=== PATIENT | female | born 1940 | race Caucasian/White ===

== ENCOUNTER 2021-07-11 12:39 | Outpatient (CLI) | payer MEDICARE, BC | END 2021-07-11 12:40 | disposition home or self-care (01) | LOC: BICMAMMO 12:39 | PROVIDERS: ATTEND Internal Medicine | DX: Z12.31 Encounter for screening mammogram for malignant neoplasm of breast (principal) | CPT/HCPCS: 77063; 77067 ==

== ENCOUNTER 2022-06-12 08:04 | Outpatient (CLI) | payer MEDICARE, BC ==
[2022-06-12 08:58] LABS: #Basophils 0.1 10x3/uL (0.0-0.2); #Eosinphils 0.3 10x3/uL (0.0-0.5); #Monocytes 0.6 10x3/uL (0.0-1.1); %Basophils 0.8 % (0.0-2.0); %Eosinophils 4.5 % (0.0-6.0); %Lymphocytes 31.7 % (18.0-47.0); %Monocytes 8.2 % (0.0-10.0); %Neutrophils 54.5 % (40.0-75.0); Hemoglobin 11.1 g/dL (12.0-15.5); Mean Corpuscular HGB CONC 33.5 g/dL (32.0-36.0); Mean Corpuscular Hemoglobin 31.5 pg (27.0-33.0); Mean Platelet Volume 11.3 fl (7.4-10.4); Platelet Count 254 10x3/uL (150-450); RBC Distribution Width 13.3 % (11.5-14.5); Red Blood Cell (RBC) Count 3.52 10x6/uL (3.90-5.03); White Blood Cell (WBC) Count 7.3 10x3/uL (3.5-10.5)
[2022-06-12 09:01] LABS: Prothrombin Time 10.5 sec (9.5-12.1)
[2022-06-12 09:04] LABS: Anion Gap 14 mmol/L (10-20); BUN (Urea Nitrogen) 42 mg/dL (9.8-20.1); Calc. Creatinine Clearance 0 mL/min (70-130); Calcium 9.9 mg/dL (7.8-10.44); Carbon Dioxide 26 mmol/L (23-31); Chloride 101 mmol/L (98-107); Estimated GFR 52; Glucose 102 mg/dL (83-110); Potassium 3.7 mmol/L (3.5-5.1); Sodium 137 mmol/L (136-145)
== END 2022-06-12 08:05 | disposition home or self-care (01) ==
LOC: LABBT 08:04
PROVIDERS: ATTEND Orthopaedic Surgery
DX: Z01.818 Encounter for other preprocedural examination (principal); M16.11 Unilateral primary osteoarthritis, right hip
CPT/HCPCS: 80048; 85025; 85610; 87081; 93005; 93010

== ENCOUNTER 2022-06-13 05:52 | Inpatient (IN) | payer MEDICARE, BC ==
[2022-06-13] MEDS ORDERED: Sodium Chloride 0.9% 100 ML ONE ×2 (06:28→09:19)
[2022-06-13] MEDS ORDERED: Vancomycin 1 GM/200 ML (FROZEN) BAG ONE (06:28)
[2022-06-13] MEDS ORDERED: Tranexamic Acid 1,000 MG/10 ML VIAL ONE (06:28)
[2022-06-13 07:37] LABS: SARS-CoV-2 NAA Rapid Test Not Detected (NotDetected)
[2022-06-13] MEDS ORDERED: Fentanyl 100 MCG/2 ML VIAL ONE (07:44)
[2022-06-13] MEDS ORDERED: Midazolam HCl 2 mg/2 ml Vial ONE (07:44)
[2022-06-13] MEDS ORDERED: Ropivacaine 0.5% HCl/PF (150 MG/30 ML VIAL) ONE (07:44)
[2022-06-13] MEDS ORDERED: PHENYLEPHRINE-NS 100 MCG/ML 10 ML SYRINGE ONE (08:59)
[2022-06-13] MEDS ORDERED: PROPOFOL 200 MG/20 ML VIAL ONE (08:59)
[2022-06-13] MEDS ORDERED: Ondansetron PF 4 MG/2 ML Vial ONE ×2 (08:59→12:13)
[2022-06-13] MEDS ORDERED: ePHEDrine 50 MG/ML VIAL ONE (08:59)
[2022-06-13] MEDS ORDERED: Bupivacaine PF 0.5% 30 ML VIAL ONE (09:06)
[2022-06-13] MEDS ORDERED: Propofol 500 MG/50 ML VIAL ONE (09:07)
[2022-06-13] MEDS ORDERED: diphenhydrAMINE 25 MG CAP PO PRN (09:13)
[2022-06-13] MEDS ORDERED: Zolpidem Tartrate 5 MG TAB PO PRN (09:13)
[2022-06-13] MEDS ORDERED: traMADol HCl 50 MG TAB PO PRN ×2 (09:13)
[2022-06-13] MEDS ORDERED: Promethazine HCl 25 MG/ML VIAL IM PRN (09:13)
[2022-06-13] MEDS ORDERED: Fentanyl 100 MCG/2 ML VIAL SLOW IVP PRN (09:13)
[2022-06-13] MEDS ORDERED: Acetaminophen 325 MG TAB PO PRN (09:13)
[2022-06-13] MEDS ORDERED: Loratadine 10 MG TAB PO PRN (09:14)
[2022-06-13] MEDS ORDERED: ePHEDrine Sulfate 50 MG/10 ML VIAL ONE (09:18)
[2022-06-13] MEDS ORDERED: CEFAZOLIN 2 GM VIAL ONE (09:19)
[2022-06-13] MEDS: Sodium Chloride 0.9% 1,000 ML IV SCH ×2 (09:45→20:57)
[2022-06-13] MEDS ORDERED: Ondansetron HCl/PF 4 MG/2 ML Vial IVP PRN (10:28)
[2022-06-13] MEDS ORDERED: fentaNYL PF 100 MCG/2 ML SYRINGE ONE ×2 (11:54→13:23)
[2022-06-13] MEDS ORDERED: Promethazine HCl 25 MG/ML VIAL ONE (12:21)
[2022-06-13] MEDS ORDERED: Labetalol HCl 100 MG/20 ML VIAL ONE (12:48)
[2022-06-13] MEDS ORDERED: Haloperidol Lactate 5 MG/ML VIAL ONE (13:08)
[2022-06-13] MEDS ORDERED: Promethazine HCl 25 MG/ML VIAL IM/IV PRN (13:15)
[2022-06-13] MEDS ORDERED: Ketorolac Tromethamine 30 MG/ML VIAL ONE (14:19)
[2022-06-13] MEDS ORDERED: Acetaminophen 325 MG TAB ONE (14:20)
[2022-06-13 17:01] VITALS: BMI 26.6
[2022-06-13] MEDS: CEFAZOLIN 2 GM in Sodium Chloride 0.9% 100 ML IVPB SCH (17:50)
[2022-06-13] MEDS: Senokot S 8.6-50 MG TAB PO SCH (21:00)
[2022-06-13] MEDS: Aspirin 81 mg Enteric Coated Tablet PO SCH (21:00)
[2022-06-13] MEDS ORDERED: Ferrous Gluconate 324 MG TAB PO SCH (21:00)
[2022-06-13] MEDS: Atorvastatin Calcium 10 MG TAB PO SCH (21:00)
[2022-06-14] MEDS: CEFAZOLIN 2 GM in Sodium Chloride 0.9% 100 ML IVPB SCH (00:49)
[2022-06-14 06:33] LABS: Hemoglobin 9.3 g/dL (12.0-16.0); Mean Corpuscular HGB CONC 33.2 g/dL (32.0-36.0); Mean Corpuscular Volume 96.4 fl (78.0-98.0); Mean Platelet Volume 9.1 fL (7.4-10.4); Platelet Count 172 10x3/uL (130-400); RBC Distribution Width 11.6 % (11.5-14.5); White Blood Cell (WBC) Count 7.4 10x3/uL (4.8-10.8)
[2022-06-14] MEDS: Cholecalciferol 1,000 UNITS (25 MCG) TAB PO SCH (07:38)
[2022-06-14] MEDS: Multivitamin W/ Minerals 1 TAB PO SCH (07:38)
[2022-06-14] MEDS: Ferrous Gluconate 324 MG TAB PO SCH (07:39)
[2022-06-14] MEDS: Senokot S 8.6-50 MG TAB PO SCH ×2 (07:39→20:37)
[2022-06-14] MEDS: Hydrochlorothiazide 25 MG TAB PO SCH (07:39)
[2022-06-14] MEDS: Aspirin 81 mg Enteric Coated Tablet PO SCH ×2 (07:39→20:37)
[2022-06-14] MEDS: HYDROcodone/Acetaminophen 10/325 mg Tablet PO PRN ×2 (13:52→18:04)
[2022-06-14] MEDS: Sodium Chloride 0.9% 1,000 ML IV SCH ×2 (17:01→17:02)
[2022-06-14] MEDS: Atorvastatin Calcium 10 MG TAB PO SCH (20:37)
[2022-06-15] MEDS: Sodium Chloride 0.9% 1,000 ML IV SCH ×3 (00:05→21:27)
[2022-06-15] MEDS: HYDROcodone/Acetaminophen 10/325 mg Tablet PO PRN ×4 (00:06→20:43)
[2022-06-15 06:10] LABS: Hemoglobin 9.8 g/dL (12.0-16.0); Mean Corpuscular HGB CONC 33.4 g/dL (32.0-36.0); Mean Corpuscular Hemoglobin 32.5 pg (27.0-31.0); Mean Corpuscular Volume 97.3 fl (78.0-98.0); Mean Platelet Volume 9.1 fL (7.4-10.4); Platelet Count 176 10x3/uL (130-400); RBC Distribution Width 11.5 % (11.5-14.5); Red Blood Cell (RBC) Count 3.02 mill/uL (4.20-5.40); White Blood Cell (WBC) Count 9.7 10x3/uL (4.8-10.8)
[2022-06-15] MEDS: Multivitamin W/ Minerals 1 TAB PO SCH (08:40)
[2022-06-15] MEDS: Ferrous Gluconate 324 MG TAB PO SCH (08:40)
[2022-06-15] MEDS: Senokot S 8.6-50 MG TAB PO SCH ×2 (08:40→20:39)
[2022-06-15] MEDS: Aspirin 81 mg Enteric Coated Tablet PO SCH ×2 (08:40→20:39)
[2022-06-15] MEDS: Cholecalciferol 1,000 UNITS (25 MCG) TAB PO SCH (08:41)
[2022-06-15] MEDS: Hydrochlorothiazide 25 MG TAB PO SCH (08:41)
[2022-06-15] MEDS: Ondansetron PF 4 MG/2 ML Vial IVP PRN (10:30)
[2022-06-15] MEDS: Atorvastatin Calcium 10 MG TAB PO SCH (20:39)
[2022-06-16] MEDS: Sodium Chloride 0.9% 1,000 ML IV SCH (05:08)
[2022-06-16 06:24] LABS: Hemoglobin 9.4 g/dL (12.0-16.0); Mean Corpuscular HGB CONC 33.1 g/dL (32.0-36.0); Mean Corpuscular Hemoglobin 32.3 pg (27.0-31.0); Mean Corpuscular Volume 97.6 fl (78.0-98.0); Platelet Count 202 10x3/uL (130-400); RBC Distribution Width 11.5 % (11.5-14.5); White Blood Cell (WBC) Count 9.8 10x3/uL (4.8-10.8)
[2022-06-16] MEDS: Aspirin 81 mg Enteric Coated Tablet PO SCH (09:20)
[2022-06-16] MEDS: Hydrochlorothiazide 25 MG TAB PO SCH (09:21)
[2022-06-16] MEDS: Cholecalciferol 1,000 UNITS (25 MCG) TAB PO SCH (09:22)
[2022-06-16] MEDS: HYDROcodone/Acetaminophen 10/325 mg Tablet PO PRN (09:25)
[2022-06-16] MEDS: Multivitamin W/ Minerals 1 TAB PO SCH (09:26)
[2022-06-16] MEDS: Ferrous Gluconate 324 MG TAB PO SCH (09:27)
[2022-06-16] MEDS: Senokot S 8.6-50 MG TAB PO SCH (09:29)
[2022-06-16] MEDS: Ondansetron PF 4 MG/2 ML Vial IVP PRN (12:07)
[2022-06-16 12:14] VITALS: TEMP 97.5
[2022-06-16 12:18] VITALS: BP 154/63
== END 2022-06-16 15:35 | disposition home or self-care (01) | DRG 470 ==
LOC: SDC 05:52 → SURG A 16:34 → OBSVTOIN 06-15 11:57
PROVIDERS: ADMIT Orthopaedic Surgery; ATTEND Orthopaedic Surgery
PROC: 0SR90J9 Replacement of Right Hip Joint with Synthetic Substitute, Cemented, Open Approach (ICD-10-PCS; principal; 2022-06-13)
DX: M16.11 Unilateral primary osteoarthritis, right hip (principal); R11.2 Nausea with vomiting, unspecified; Z20.822 Contact with and (suspected) exposure to COVID-19; E78.5 Hyperlipidemia, unspecified; I10 Essential (primary) hypertension; M17.11 Unilateral primary osteoarthritis, right knee; D64.9 Anemia, unspecified; Z90.710 Acquired absence of both cervix and uterus; Z91.040 Latex allergy status; Z90.89 Acquired absence of other organs; Z80.9 Family history of malignant neoplasm, unspecified; Z82.3 Family history of stroke; Z87.891 Personal history of nicotine dependence; Z79.899 Other long term (current) drug therapy; Z88.0 Allergy status to penicillin
CPT/HCPCS: 36415; 85027; 96374; 96375; 96376; C1713; C1776; G0378; J1630; J1885; J2250; J2405; J2550; J2704; J2795; J3010; J3370-JW; J3490; J7050; S0020; U0002

== ENCOUNTER 2024-04-11 10:21 | Outpatient (CLI) | payer MEDICARE | END 2024-04-11 10:22 | disposition home or self-care (01) | LOC: ULT 10:21 | PROVIDERS: ATTEND Internal Medicine | DX: I10 Essential (primary) hypertension (principal); Z86.73 Personal history of transient ischemic attack (TIA), and cerebral infarction without residual deficits; I65.29 Occlusion and stenosis of unspecified carotid artery | CPT/HCPCS: 93880 ==

== ENCOUNTER 2024-12-23 10:35 | Outpatient (CLI) | payer MEDICARE | END 2024-12-23 10:36 | disposition home or self-care (01) | LOC: BICCT 10:35 | PROVIDERS: ATTEND Orthopaedic Surgery | DX: M17.12 Unilateral primary osteoarthritis, left knee (principal) ==

== ENCOUNTER 2024-12-23 11:25 | Outpatient (CLI) | payer MEDICARE ==
[2024-12-23 12:58] LABS: #Basophils 0.07 10x3/uL (0.0-0.2); #Eosinophils 0.24 10x3/uL (0.0-0.7); #Monocytes 0.71 10x3/uL (0.11-0.59); #Neutrophils 4.53 10x3/uL (1.40-6.50); %Basophils 0.9 % (0.0-1.0); %Eosinophils 2.9 % (0.0-10.0); %Lymphocytes 31.7 % (21.0-51.0); %Monocytes 8.7 % (0.0-10.0); %Neutrophils 55.6 % (42.0-75.0); Hematocrit 33.4 % (36.0-47.0); Hemoglobin 10.9 g/dL (12.0-16.0); Mean Corpuscular Hemoglobin 31.5 pg (27.0-31.0); Mean Corpuscular Volume 96.5 fL (78.0-98.0); Platelet Count 220 10x3/uL (130-400); Red Blood Cell (RBC) Count 3.46 mill/uL (4.20-5.40); White Blood Cell (WBC) Count 8.16 10x3/uL (4.8-10.8)
[2024-12-23 13:14] LABS: INR-International Normal Ratio 1.1; Prothrombin Time 14.1 sec (12.0-14.7)
[2024-12-23 13:36] LABS: Anion Gap 15 mmol/L (10-20); BUN (Urea Nitrogen) 41 mg/dL (9.8-20.1); Calc. Creatinine Clearance 0 mL/min (70-130); Calcium 9.6 mg/dL (7.8-10.44); Carbon Dioxide 23 mmol/L (23-31); Chloride 107 mmol/L (98-107); Glucose 83 mg/dL (83-110); Potassium 4.7 mmol/L (3.5-5.1); Sodium 140 mmol/L (136-145)
== END 2024-12-23 11:26 | disposition home or self-care (01) ==
LOC: LABBT 11:25
PROVIDERS: ATTEND Orthopaedic Surgery
DX: Z01.812 Encounter for preprocedural laboratory examination (principal); M17.12 Unilateral primary osteoarthritis, left knee
CPT/HCPCS: 80048; 85025; 85610; 87081

== ENCOUNTER 2024-12-30 08:29 | Inpatient (IN) | payer MEDICARE ==
[2024-12-23 11:56] VITALS: BMI 25.5
[2024-12-30] MEDS ORDERED: CEFAZOLIN 2 GM VIAL ONE (09:47)
[2024-12-30] MEDS ORDERED: Tranexamic Acid 1,000 MG/10 ML VIAL ONE (09:47)
[2024-12-30] MEDS ORDERED: Vancomycin 1 GM/200 ML (PREMIX FOIL) BAG ONE (09:48)
[2024-12-30] MEDS ORDERED: Ropivacaine 0.5% HCl/PF (150 MG/30 ML VIAL) ONE (10:09)
[2024-12-30] MEDS ORDERED: Ropivacaine 0.2% 550 ML 550 ML NERVE BLCK SCH (10:30)
[2024-12-30] MEDS ORDERED: Ondansetron PF 4 MG/2 ML Vial IVP PRN ×2 (10:30→13:12)
[2024-12-30] MEDS ORDERED: Bupivacaine 0.25% HCL 30 ML VIAL ONE (11:08)
[2024-12-30] MEDS ORDERED: PROPOFOL 20 ML ONE (11:27)
[2024-12-30] MEDS ORDERED: Lidocaine 1% PF 5 ML VIAL ONE (11:27)
[2024-12-30] MEDS ORDERED: CEFAZOLIN 1 GM VIAL ONE (11:33)
[2024-12-30] MEDS ORDERED: PHENYLEPHRINE-NS 100 MCG/ML 10 ML SYRINGE ONE (11:50)
[2024-12-30] MEDS ORDERED: Ondansetron PF 4 MG/2 ML Vial ONE ×2 (12:50→14:02)
[2024-12-30] MEDS ORDERED: Acetaminophen 325 MG TAB PO PRN (13:12)
[2024-12-30] MEDS ORDERED: diphenhydrAMINE 25 MG CAP PO PRN (13:12)
[2024-12-30] MEDS ORDERED: fentaNYL PF 100 MCG/2 ML SYRINGE ONE ×2 (13:25→14:04)
[2024-12-30] MEDS ORDERED: hydrALAZINE 20 MG/ML VIAL ONE (14:14)
[2024-12-30] MEDS ORDERED: Ketorolac Tromethamine 30 MG (1 mL) VIAL ONE (14:14)
[2024-12-30] MEDS: Ketorolac Tromethamine 30 MG (1 mL) VIAL IVP SCH (14:15)
[2024-12-30] MEDS ORDERED: HYDROmorphone 0.5 MG/0.5 ML SYRINGE ONE (14:26)
[2024-12-30] MEDS: Scopolamine 1 mg/72 hour Patch TOP SCH (18:29)
[2024-12-30] MEDS: Metoprolol Succinate XL 100 MG ER.TAB PO SCH (20:44)
[2024-12-30] MEDS: Senokot S 8.6-50 MG TAB PO SCH (20:44)
[2024-12-30] MEDS: Aspirin 81 mg Enteric Coated Tablet PO SCH (20:44)
[2024-12-30] MEDS: Ferrous Gluconate 324 MG TAB PO SCH (20:44)
[2024-12-30] MEDS ORDERED: Ferrous Gluconate 324 MG TAB PO SCH (21:00)
[2024-12-31] MEDS: Spironolactone 25 MG TAB PO SCH (04:17)
[2024-12-31 07:10] LABS: Hematocrit 25.8 % (36.0-47.0); Hemoglobin 8.2 g/dL (12.0-16.0); Mean Corpuscular Hemoglobin 30.6 pg (27.0-31.0); Mean Corpuscular Volume 96.3 fL (78.0-98.0); Platelet Count 171 10x3/uL (130-400); Red Blood Cell (RBC) Count 2.68 mill/uL (4.20-5.40); White Blood Cell (WBC) Count 9.34 10x3/uL (4.8-10.8)
[2024-12-31] MEDS ORDERED: Ferrous Gluconate 324 MG TAB PO SCH (09:00)
[2024-12-31] MEDS: Cholecalciferol 1,000 UNITS (25 MCG) TAB PO SCH (09:58)
[2024-12-31] MEDS: Multivitamin W/ Minerals 1 TAB PO SCH (09:59)
[2024-12-31 15:09] LABS: Calc. Creatinine Clearance 25.0 mL/min (70-130)
[2025-01-01] MEDS: HYDROcodone/Acetaminophen 10/325 mg Tablet PO PRN ×2 (00:36→10:25)
[2025-01-01 08:29] VITALS: BP 103/46; TEMP 97.6
[2025-01-01 09:13] LABS: Calc. Creatinine Clearance 35.0 mL/min (70-130)
[2025-01-01 09:20] LABS: Hematocrit 26.9 % (36.0-47.0); Hemoglobin 8.5 g/dL (12.0-16.0); Mean Corpuscular Hemoglobin 30.7 pg (27.0-31.0); Mean Corpuscular Volume 97.1 fL (78.0-98.0); Platelet Count 190 10x3/uL (130-400); Red Blood Cell (RBC) Count 2.77 mill/uL (4.20-5.40); White Blood Cell (WBC) Count 10.15 10x3/uL (4.8-10.8)
== END 2025-01-01 15:26 | disposition home or self-care (01) | DRG 470 ==
LOC: SDC 08:29 → SURG A 16:11 → OBSVTOIN 12-31 14:25
PROVIDERS: ADMIT Orthopaedic Surgery; ATTEND Orthopaedic Surgery
PROC: 0SRD0J9 Replacement of Left Knee Joint with Synthetic Substitute, Cemented, Open Approach (ICD-10-PCS; principal; 2024-12-31)
DX: M17.12 Unilateral primary osteoarthritis, left knee (principal); Z96.643 Presence of artificial hip joint, bilateral; Z91.040 Latex allergy status; Z88.0 Allergy status to penicillin; Z88.8 Allergy status to other drugs, medicaments and biological substances; Z90.89 Acquired absence of other organs; Z90.710 Acquired absence of both cervix and uterus; Z79.899 Other long term (current) drug therapy; Z97.3 Presence of spectacles and contact lenses
CPT/HCPCS: 36415; 82565; 85027; A4306; C1713; C1776; C1889; J0169; J0360; J0665; J0690; J1171; J1885; J2250; J2405; J2704; J2795; J3010; J3372; J7030